=== PATIENT | male | born 1970 | race Hispanic/Latino ===

== ENCOUNTER 2025-01-09 13:51 | Emergency (ER) | payer SELFPAY ==
[~2025-01-09] VITALS: Ht 177.8 cm; Wt 104.3 kg
[2025-01-09 15:29] LABS: CORONAVIRUS COVID-19 AG NEGATIVE (NEGATIVE); INFLUENZA A AG NEGATIVE (NEGATIVE); INFLUENZA B AG NEGATIVE (NEGATIVE)
[2025-01-09 17:25] VITALS: PULSE 84; RESP 16; TEMP 98.1; O2SAT 99
== END 2025-01-09 17:29 | disposition home or self-care (01) ==
LOC: ER 14:28
DX: R53.1 Weakness (principal); M48.061 Spinal stenosis, lumbar region without neurogenic claudication; R05.9 Cough, unspecified; Z11.52 Encounter for screening for COVID-19
CPT/HCPCS: 71045; 72131; 72192; 99284